=== PATIENT | male | born 1965 | race Caucasian/White ===

== ENCOUNTER → 2020-04-19 | Outpatient (CLI) | payer BC | END | disposition home or self-care (01) | LOC: LABPAT 12:34 | PROVIDERS: ATTEND Surgery | DX: Z20.828 Contact with and (suspected) exposure to other viral communicable diseases (principal) | CPT/HCPCS: U0003; C9803 ==

== ENCOUNTER → 2020-04-23 | Day surgery (SDC) | payer BC ==
[2020-04-22 08:43] VITALS: BMI 25.3
[~2020-04-23] MED LIST: BUPIVACAINE (PF) 0.25% 30 ML VIAL SQ ONE; DEXAMETHASONE SOD PHOSPHATE 4 MG/ML 1 ML VIAL IVP ONE; DEXAMETHASONE SOD PHOSPHATE 4 MG/ML 1 ML VIAL ONE; GLYCOPYRROLATE 0.2 MG/ML 2 ML VIAL ONE; HEPARIN SODIUM,PORCINE 5,000 UNIT/ML 1 ML VIAL SQ ONE; LACTATED RINGERS 1,000 ML IV ONE; LIDOCAINE 1% INJ 10MG/ML (20 ML MDV) ONE; LIDOCAINE 1%-EPI 1:100,000 20 ML VIAL SQ ONE; MIDAZOLAM 2 MG/2 ML VIAL IVP ONE; MIDAZOLAM 2 MG/2 ML VIAL ONE; NEOSTIGMINE 1 MG/ML 10 ML VIAL ONE; ONDANSETRON 4 MG/2 ML VIAL IVP ONE; ONDANSETRON 4 MG/2 ML VIAL ONE; PHENYLEPHRINE-0.9% NACL SYG 1 MG/10 ML SYRINGE ONE; PROPOFOL 10 MG/ML 20 ML VIAL IV ONE; ROCURONIUM 10 MG/ML (10 ML VIAL) IV ONE; ROPIVACAINE 5 MG/ML 30 ML VIAL ONE; SUCCINYLCHOLINE CHLORIDE 100 MG/5 ML SYR IV ONE; fentaNYL (PF) 50 MCG/ML 2 ML AMP ONE
[2020-04-23 10:34] LABS: Basophils # (A) 0.1 k/uL (0-0.2); Basophils % (A) 1 %; Eosinophils # (A) 0.2 k/uL (0-0.7); Eosinophils % (A) 4 %; HCT 50.6 % (39.0-53.0); HGB 17.2 gm/dL (13.0-17.5); Lymphocytes # (A) 2.2 k/uL (1.0-4.8); Lymphocytes % (A) 39 %; MCH 32.8 pg (25.0-35.0); MCV 96.6 fL (80.0-100.0); Mean Platelet Volume 7.7; Monocytes # (A) 0.4 k/uL (0-1.0); Monocytes % (A) 7 %; Neutrophils # (A) 2.6 k/uL (1.3-7.7); Neutrophils % (A) 46 %; Platelet Count 209 k/uL (150-450); RBC 5.24 m/uL (4.30-5.90); RDW 11.9 % (11.5-15.5); WBC 5.7 k/uL (3.8-10.6)
--- NOTE | 2020-04-23 12:37 | P.OP ---
Date of Procedure: 04/23/20 Preoperative Diagnosis: Right inguinal hernia Postoperative Diagnosis: Right inguinal hernia Procedure(s) Performed: Robotic right inguinal hernia repair with mesh placement Implants: Mesh Anesthesia: MARIANN Surgeon: Jesus Mckinney Pathology: none sent Condition: stable Disposition: same day Indications for Procedure: 54-year-old male presents for elective hernia repair of the right inguinal region. He states that he has had discomfort in the right groin and has had a previous left inguinal hernia repair. On exam, the patient does have a palpable reducible right inguinal hernia. Risks, benefits and alternatives were provided to the patient and the patient did provide consent prior to attending the operating suite. Operative Findings: Right inguinal indirect hernia Description of Procedure: The patient was brought to the operating suite and placed in supine position. After general endotracheal anesthesia was induced, arms were tucked to the sides bilaterally and all pressure points were padded. SCDs were also placed in the bilateral lower extremities and were working throughout the entire case. Preoperative antibiotics were given prior to the incision. A timeout was performed with Felty members in agreement with correct patient, procedure and location. A super umbilical incision was made approximately 20 cm superior to the pubic synthesis. The abdomen was then entered under direct visualization wi th a Visiport. At this point pneumoperitoneum was achieved. 2 additional incisions were made approximately 11 7 m lateral to the super umbilical incision and 8 mm trochars were placed. The patient was then placed in Trendelenburg position and the hernia site was clearly visualized on the right side. This was noted as an indirect inguinal hernia. The robot was then docked appropriately. Incision was then made just lateral to the medial umbilical ligament on the right side with the monopolar scissors and the peritoneal flap was created and was taken down towards Remington's ligament. The flap was then extended laterally. Attention was then turned to the indirect inguinal hernia. The sac was then freed from the cord, all while preserving the cord structures. At this point, the indirect hernia was reduced. Once entire space was appropriately dissected out, we brought the laparoscopic anatomic parietex progrip mesh and unrolled it over the hernia site. Once appropriately in place, the peritoneal flap was closed using a running 20V lock suture. Once this was completed, we removed all the robotic instruments and undocked the robot. The super umbilical fascial incision was closed with 0 Vicryl suture using the Wade Lizama device. This was done under visual guidance. All skin incisions were then closed with 4-0 Vicryl suture. The patient was awakened and taken to the recovery unit in stable condition.
[2020-04-23 12:49] VITALS: TEMP 98.2
[2020-04-23 12:57] VITALS: RESP 16
[2020-04-23 14:14] VITALS: BP 123/80; PULSE 58
--- NOTE | 2020-04-23 19:51 | P.ANPRN ---
Procedure Note - Anesthesia - Nerve Block Performed Right Transversus Abdominis Single Time Out Performed: Yes Date of Procedure: 04/23/20 Procedure Start Time: 10:38 Procedure Stop Time: 10:44 Location of Patient: PreOp Indication: Acute Post-Operative Pain, Requested by Surgeon Sedation Type: Sedate with meaningful contact maintained Preparation: Sterile Prep Position: Supine Needle Types: Pajunk Needle Gauge: 21 Ultrasound used to visualize needle placement: Yes Ultrasound used to observe medication spread: Yes Blood Aspirated: No Pain Paresthesia on Injection Noted: No Resistance on Injection: Normal Image Stored and Saved: Yes Events: Uneventful and Well Tolerated (ropi .5% 20cc plus dexamethasone 4mg)
== END | disposition home or self-care (01) ==
LOC: OR 09:44
PROVIDERS: ATTEND Surgery
DX: K40.90 Unilateral inguinal hernia, without obstruction or gangrene, not specified as recurrent (principal); K21.9 Gastro-esophageal reflux disease without esophagitis; K64.9 Unspecified hemorrhoids; I10 Essential (primary) hypertension; J30.2 Other seasonal allergic rhinitis; N52.9 Male erectile dysfunction, unspecified; E55.9 Vitamin D deficiency, unspecified; Z98.890 Other specified postprocedural states; Z87.19 Personal history of other diseases of the digestive system; Z87.09 Personal history of other diseases of the respiratory system; Z86.010 Personal history of colon polyps; Z98.52 Vasectomy status; Z87.891 Personal history of nicotine dependence; Z79.82 Long term (current) use of aspirin; Z82.49 Family history of ischemic heart disease and other diseases of the circulatory system
CPT/HCPCS: 49650; S2900; 64486; 64488; 85025

== ENCOUNTER → 2021-10-13 | Outpatient (CLI) | payer BC ==
--- NOTE | 2021-10-13 14:00 | MR ---
EXAMINATION TYPE: MR knee LT wo con DATE OF EXAM: 10/13/2021 COMPARISON: None. HISTORY: Left knee pain and locking for 1 year TECHNIQUE: Multiplanar, multisequence imaging of the left knee is performed without IV contrast. FINDINGS: MEDIAL MENISCUS: Small focus of round increased signal posterior horn axial image 28 does not definit ively extend to articular surface. LATERAL MENISCUS: Anterior and posterior horns are intact without tear. CRUCIATE LIGAMENTS: The anterior and posterior cruciate ligaments are intact. Some vertical tearing o f the distal ACL is present for reference sagittal image 18. COLLATERAL LIGAMENTS: The medial collateral ligament and lateral collateral ligament complex are inta ct and unremarkable. EXTENSOR MECHANISM: Visualized quadriceps and patellar tendons are intact. EFFUSION: No significant suprapatellar joint effusion. POPLITEAL CYST: No popliteal/echeverria cyst. TRICOMPARTMENT SPACES: Focal moderate narrowing medial aspect of the patellofemoral compartment. No s ignificant spurring is seen. CARTILAGE: Focal chondromalacia patella with fissuring and cartilaginous loss medial aspect of the po sterior patellar pole axial image 30 extending superiorly. BONE MARROW SIGNAL: Some focus of increased T2 signal posterior patellar pole axial image 33 is noted near site of full-thickness cartilaginous loss. OTHER: No additional significant abnormality is appreciated. IMPRESSION: 1. Partial tearing of the distal ACL fibers. No full thickness retracted tear is seen. 2. Possible intrasubstance tear posterior horn of medial meniscus. No full-thickness meniscal tear. 3. Patellofemoral joint arthropathy as detailed above.
== END | disposition home or self-care (01) ==
LOC: RADMRIMAIN 13:03
PROVIDERS: ATTEND Orthopaedic Surgery
DX: S83.512A Sprain of anterior cruciate ligament of left knee, initial encounter (principal); M12.862 Other specific arthropathies, not elsewhere classified, left knee; X58.XXXA Exposure to other specified factors, initial encounter

== ENCOUNTER → 2022-02-18 | Outpatient (CLI) | payer BC ==
[2022-02-18 11:43] LABS: Basophils # (A) 0.03 X 10*3/uL (0.00-0.10); Basophils % (A) 0.5 %; Eosinophils # (A) 0.14 X 10*3/uL (0.04-0.35); Eosinophils % (A) 2.3 %; HCT 45.5 % (39.6-50.0); HGB 16.1 g/dL (13.0-17.0); Immature Grans, Automated 0.2 %; Lymphocytes # (A) 2.67 X 10*3/uL (0.90-5.00); Lymphocytes % (A) 44.1 %; MCH 33.1 pg (27.0-32.0); MCHC 35.4 g/dL (32.0-37.0); MCV 93.4 fL (80.0-97.0); Monocytes # (A) 0.51 X 10*3/uL (0.20-1.00); Monocytes % (A) 8.4 %; NRBC Per 100 WBC 0 /100 WBCS (0.0-0.0); Neutrophils # (A) 2.69 X 10*3/uL (1.80-7.70); Neutrophils % (A) 44.5 %; Platelet Count 213 X 10*3/uL (140-440); RBC 4.87 X 10*6/uL (4.40-5.60); RDW 12.1 % (11.5-14.5); WBC 6.05 X 10*3/uL (4.50-10.00)
[2022-02-18 11:50] LABS: Anion Gap 8.6 mmol/L (10.00-18.00); Carbon Dioxide 24.4 mmol/L (20.0-27.5); Potassium 4.3 mmol/L (3.5-5.5)
== END | disposition home or self-care (01) ==
LOC: LABPAT 08:15
PROVIDERS: ATTEND Orthopaedic Surgery
DX: Z01.812 Encounter for preprocedural laboratory examination (principal); M23.92 Unspecified internal derangement of left knee
CPT/HCPCS: 80051; 85025; 93005

== ENCOUNTER 2022-02-23 10:44 | Day surgery (SDC) | payer BC ==
[2022-02-21 11:22] VITALS: BMI 27.9
--- NOTE | 2022-02-23 04:28 | HP ---
HISTORY AND PHYSICAL DATE OF SURGERY: 02/23/2022. HISTORY OF PRESENT ILLNESS: Graeme Vásquez is a 56-year-old gentleman, seen with progressive left knee pain. We discussed options for treatment. He elected to proceed with arthroscopy. Consent was obtained. PAST MEDICAL HISTORY: Noncontributory. PAST SURGICAL HISTORY: Herniorrhaphy. DAILY MEDICATIONS: Tylenol. ALLERGIES: None. SOCIAL HISTORY: Denies tobacco use. PHYSICAL EVALUATION OF THE LEFT KNEE: Range of motion 0 to 130. Mild effusion. Tenderness in the medial joint line. Positive medial Raul's. Ligaments stable. Distal neurovascular exam is intact. RADIOGRAPHS: Radiographs of the left knee reveal mild osteoarthritis. MRI of the left knee revealed partial ACL tear, abnormal signal in the medial meniscus, and patellofemoral osteoarthritis. IMPRESSION: Internal derangement of left knee with partial anterior cruciate ligament tear and medial meniscal tear. PLAN: Left knee arthroscopy with partial medial meniscectomy and debridement. MMODL / IJN: [id number] /
[~2022-02-23 10:44] MED LIST changes: -BUPIVACAINE (PF) 0.25% 30 ML VIAL SQ ONE; +DEXAMETHASONE SOD PHOSPHATE 4 MG/ML 1 ML VIAL IV ONE; -DEXAMETHASONE SOD PHOSPHATE 4 MG/ML 1 ML VIAL IVP ONE; -DEXAMETHASONE SOD PHOSPHATE 4 MG/ML 1 ML VIAL ONE; -GLYCOPYRROLATE 0.2 MG/ML 2 ML VIAL ONE; -HEPARIN SODIUM,PORCINE 5,000 UNIT/ML 1 ML VIAL SQ ONE; +HYDROmorphone 0.5 MG/0.5 ML SYRINGE IVP PRN; -LACTATED RINGERS 1,000 ML IV ONE; +LACTATED RINGERS 1,000 ML IV SCH; +LIDOCAINE 1% (10MG/ML) FOR IV START INTRADERMA PRN; -LIDOCAINE 1% INJ 10MG/ML (20 ML MDV) ONE; -LIDOCAINE 1%-EPI 1:100,000 20 ML VIAL SQ ONE; +MIDAZOLAM 2 MG/2 ML VIAL IV PRN; -MIDAZOLAM 2 MG/2 ML VIAL IVP ONE; -MIDAZOLAM 2 MG/2 ML VIAL ONE; -NEOSTIGMINE 1 MG/ML 10 ML VIAL ONE; -ONDANSETRON 4 MG/2 ML VIAL ONE; -PHENYLEPHRINE-0.9% NACL SYG 1 MG/10 ML SYRINGE ONE; -PROPOFOL 10 MG/ML 20 ML VIAL IV ONE; -ROCURONIUM 10 MG/ML (10 ML VIAL) IV ONE; -ROPIVACAINE 5 MG/ML 30 ML VIAL ONE; -SUCCINYLCHOLINE CHLORIDE 100 MG/5 ML SYR IV ONE; -fentaNYL (PF) 50 MCG/ML 2 ML AMP ONE
[2022-02-23 11:06] VITALS: TEMP 97.4
[2022-02-23] MEDS ORDERED: LACTATED RINGERS 1,000 ML IV ONE (11:20)
[2022-02-23] MEDS ORDERED: MIDAZOLAM 2 MG/2 ML VIAL IVP ONE (11:56)
[2022-02-23] MEDS ORDERED: PROPOFOL 10 MG/ML 20 ML VIAL IV ONE (12:27)
[2022-02-23] MEDS ORDERED: MIDAZOLAM 2 MG/2 ML VIAL ONE (12:27)
[2022-02-23] MEDS ORDERED: fentaNYL (PF) 50 MCG/ML 2 ML AMP ONE (12:27)
[2022-02-23] MEDS ORDERED: DEXAMETHASONE SOD PHOSPHATE 4 MG/ML 1 ML VIAL ONE (12:27)
[2022-02-23] MEDS ORDERED: LIDOCAINE 2% INJ 20 MG/ML (2 ML VIAL) ONE (12:27)
[2022-02-23] MEDS ORDERED: ROPIVACAINE 5 MG/ML 30 ML VIAL ONE (12:27)
[2022-02-23] MEDS ORDERED: BUPIVACAINE (PF) 0.25% 30 ML VIAL SQ ONE ×2 (12:33→12:58)
[2022-02-23 13:55] VITALS: RESP 20
[2022-02-23 14:13] VITALS: BP 148/87; PULSE 58
--- NOTE | 2022-02-23 19:36 | P.ANPRN ---
Procedure Note - Anesthesia - Nerve Block Performed Left Adductor Canal Single Time Out Performed: Yes Date of Procedure: 02/23/22 Procedure Start Time: 11:55 Procedure Stop Time: 11:59 Location of Patient: PreOp Indication: Acute Post-Operative Pain, Requested by Surgeon Sedation Type: Sedate with meaningful contact maintained Preparation: Sterile Prep Position: Supine Needle Types: Pajunk Needle Gauge: 21 Ultrasound used to visualize needle placement: Yes Ultrasound used to observe medication spread: Yes Blood Aspirated: No Pain Paresthesia on Injection Noted: No Resistance on Injection: Normal Image Stored and Saved: Yes Events: Uneventful and Well Tolerated (ropi .5% 20cc plus dexamethasone 4mg)
--- NOTE | 2022-02-23 23:42 | OP ---
OPERATIVE REPORT PREOPERATIVE DIAGNOSIS: Internal derangement, left knee. POSTOPERATIVE DIAGNOSES: 1. Medial meniscal tear, left knee. 2. 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 3. Reactive synovitis of medial, lateral, and suprapatellar compartments, left knee. PROCEDURES PERFORMED: 1. Arthroscopic partial medial meniscectomy, left knee. 2. Arthroscopic chondroplasty of patella, left knee. 3. Arthroscopic partial synovectomy of medial, lateral, and suprapatellar compartments, left knee. ANESTHESIA: General. BLOOD LOSS: 7 mL. CONDITION: Stable. INDICATIONS FOR PROCEDURE: This is a 56-year-old gentleman seen with progressive left knee pain. We discussed options. He elected to proceed with arthroscopy. Consent was obtained. DESCRIPTION OF PROCEDURE: The patient was taken to the operative suite. He underwent a general anesthetic by the Department of Anesthesia. He received preoperative IV antibiotics. The left lower extremity was placed in a well-padded arthroscopic leg frazier and prepped and draped in normal sterile orthopedic fashion. Lateral parapatellar incision was made. Trocar was inserted. An arthroscopy was initiated in the suprapatellar compartment. There were grade 3/4 chondromalacia changes of the medial facet of the patella with some large osteochondral flap tears present. There was some thick reactive synovitis in the suprapatellar compartment. No loose bodies were identified. The scope was guided into the gutter. No loose bodies. The scope was guided into the medial compartment. A spinal needle was introduced in the anteromedial portal site. Incision was made. Trocar was inserted followed by a probe. There was a radial tear of posterior horn of the medial meniscus. No chondromalacia present. Thick reactive synovitis seen anteriorly. I performed a partial medial meniscectomy getting down to stable meniscal tissue, and I performed a partial synovectomy decompressing the reactive synovitis. The residual meniscus was stable, and there was good decompression of the synovitis. The scope and probe were now guided into the intercondylar notch. I identified and probed the ACL, which appeared intact and stable. The scope and probe were guided into the lateral compartment. The lateral meniscus was thoroughly probed and found to be stable. There was no significant chondromalacia. There was some reactive synovitis anteriorly. I introduced a motorized shaver and performed a partial synovectomy. There was good decompression of the synovitis. The scope was then guided back into the suprapatellar compartment. I introduced a motorized shaver. I debrided some piecemeal fragments of meniscus I encountered. I now performed a chondroplasty of the patella getting down to stable osteochondral tissue, and I performed a partial synovectomy. The shaver was removed. The residual osteochondral surface appeared stable. I did note areas of almost grade 4 chondromalacia of the medial facet, but the residual articular surface appeared stable. There was good decompression of the synovitis. I took one more look around the entire knee. No residual debris. Instruments were now removed from the knee. The portal sites were approximated with Steri-Strips. The joint was infiltrated with 20 mL of 0.25% plain Marcaine. Sterile dressings were applied followed by a CADEN hose. The patient was now awakened and then transferred to Recovery in stable condition. MMODL / IJN: [id number] /
== END 2022-02-23 14:33 | disposition home or self-care (01) ==
LOC: OR 10:44
PROVIDERS: ATTEND Orthopaedic Surgery
DX: M23.304 Other meniscus derangements, unspecified medial meniscus, left knee (principal); S83.512A Sprain of anterior cruciate ligament of left knee, initial encounter; M22.42 Chondromalacia patellae, left knee; M65.862 Other synovitis and tenosynovitis, left lower leg; M17.12 Unilateral primary osteoarthritis, left knee; G89.18 Other acute postprocedural pain; M25.562 Pain in left knee; K21.9 Gastro-esophageal reflux disease without esophagitis; M25.40 Effusion, unspecified joint; Z98.890 Other specified postprocedural states; X58.XXXA Exposure to other specified factors, initial encounter
CPT/HCPCS: 29881; 64447; 76942; J2250; J1100; J0690; J2405; J3010; J2795; J2704; J2001

== ENCOUNTER → 2022-05-02 | Outpatient (CLI) | payer BC ==
--- NOTE | 2022-05-02 12:15 | MR ---
EXAMINATION TYPE: MR knee RT wo con DATE OF EXAM: 05/02/2022 COMPARISON: Lateral knee radiograph 10/04/2021 HISTORY: Right knee pain. TECHNIQUE: Multiplanar, multisequence imaging of the right knee is performed without IV contrast. FINDINGS: MENISCI: Lateral meniscus has a normal appearance. There is intrasubstance signal within the posterio r horn of the medial meniscus without discrete extension to the articular surface. LIGAMENTS AND TENDONS: The posterior cruciate ligament, medial collateral ligament, fibular collater al ligament, and patellar retinacula are within normal limits. Some vertical tearing of the distal AC L is present. The patellar tendon, quadriceps tendon, IT band, pes anserinus tendons, semimembranosu s tendon, popliteus tendon, and biceps femoris tendon are all within normal limits. OSSEOUS STRUCTURES AND CARTILAGE: The cartilage of the patellofemoral joint demonstrates areas of he terogeneous signal with fissuring and subchondral cystic formation involving the medial and lateral f acets. The cartilage of the medial knee joint and lateral knee joint compartments are intact. The b one marrow signal intensity is within normal limits. No joint effusion. No popliteal/Galaviz's cyst. IMPRESSION: 1. Partial tearing of the distal ACL fibers. No full thickness retracted tear is seen. 2. Possible intrasubstance tear of the posterior horn of the medial meniscus. No full-thickness meni scal tear. 3. Patellofemoral joint chondromalacia.
== END | disposition home or self-care (01) ==
LOC: RADMRIMAIN 10:59
PROVIDERS: ATTEND Orthopaedic Surgery
DX: M94.261 Chondromalacia, right knee (principal)

== ENCOUNTER → 2022-07-04 | Outpatient (CLI) | payer BC ==
[2022-07-04 18:30] LABS: Basophils # (A) 0.03 X 10*3/uL (0.00-0.10); Basophils % (A) 0.6 %; Eosinophils # (A) 0.17 X 10*3/uL (0.04-0.35); Eosinophils % (A) 3.4 %; HCT 47.8 % (39.6-50.0); HGB 15.8 g/dL (13.0-17.0); Immature Grans, Automated 0 %; Lymphocytes # (A) 2.29 X 10*3/uL (0.90-5.00); Lymphocytes % (A) 46.1 %; MCH 32.6 pg (27.0-32.0); MCHC 33.1 g/dL (32.0-37.0); MCV 98.6 fL (80.0-97.0); Mean Platelet Volume 11.2 fL (9.5-12.2); Monocytes # (A) 0.47 X 10*3/uL (0.20-1.00); Monocytes % (A) 9.5 %; NRBC Per 100 WBC 0 /100 WBCS (0.0-0.0); Neutrophils # (A) 2.01 X 10*3/uL (1.80-7.70); Neutrophils % (A) 40.4 %; Platelet Count 202 X 10*3/uL (140-440); RBC 4.85 X 10*6/uL (4.40-5.60); RDW 12.4 % (11.5-14.5); WBC 4.97 X 10*3/uL (4.50-10.00)
[2022-07-06 07:30] LABS: Anion Gap 12.8 mmol/L (10.00-18.00); Carbon Dioxide 23.2 mmol/L (20.0-27.5); Potassium 4.8 mmol/L (3.5-5.5)
== END | disposition home or self-care (01) ==
LOC: LABPAT 08:11
PROVIDERS: ATTEND Orthopaedic Surgery
DX: Z01.812 Encounter for preprocedural laboratory examination (principal); M23.91 Unspecified internal derangement of right knee
CPT/HCPCS: 80051; 85025

== ENCOUNTER 2022-07-13 11:02 | Day surgery (SDC) | payer BC ==
[2022-07-10 11:25] VITALS: BMI 27.9
--- NOTE | 2022-07-13 08:18 | HP ---
HISTORY AND PHYSICAL DATE OF SURGERY: 07/13/2022. HISTORY OF PRESENT ILLNESS: Graeme Vásquez is a 57-year-old gentleman, seen with progressive right knee pain. We discussed options for treatment. He elected to proceed with right knee arthroscopy. Consent regarding the procedure was obtained. PAST MEDICAL HISTORY: Noncontributory. PAST SURGICAL HISTORY: Herniorrhaphy. DAILY MEDICATIONS: Tylenol. ALLERGIES: None. SOCIAL HISTORY: He denies tobacco use. PHYSICAL EVALUATION OF THE RIGHT KNEE: His range of motion is 0 to 130 degrees with mild effusion. Tenderness along the medial joint line with positive medial Raul's. Ligaments are stable. Hip rotation is without pain. Distal neurovascular exam is intact. IMAGING STUDIES: Right knee radiographs revealed mild osteoarthritic changes. MRI right knee revealed an intrasubstance tear of the medial meniscus as well as a partial ACL tear. IMPRESSION: Internal derangement of right knee with medial meniscal tear and partial anterior cruciate ligament tear. PLAN: Right knee arthroscopy with partial medial meniscectomy and debridement. Surgery is scheduled for 07/13/2022. MMODL / IJN: [id number] /
[~2022-07-13 11:02] MED LIST changes: -LIDOCAINE 1% (10MG/ML) FOR IV START INTRADERMA PRN; +SCOPOLAMINE 1 MG/72 HR PATCH TRANSDERM ONE
[2022-07-13] MEDS ORDERED: MIDAZOLAM 2 MG/2 ML VIAL IVP ONE (12:59)
[2022-07-13] MEDS ORDERED: LIDOCAINE 2% INJ 20 MG/ML (2 ML VIAL) ONE (13:49)
[2022-07-13] MEDS ORDERED: ROPIVACAINE 5 MG/ML 30 ML VIAL ONE (13:49)
[2022-07-13] MEDS ORDERED: MIDAZOLAM 2 MG/2 ML VIAL ONE (13:49)
[2022-07-13] MEDS ORDERED: DEXAMETHASONE SOD PHOSPHATE 4 MG/ML 1 ML VIAL ONE (13:49)
[2022-07-13] MEDS ORDERED: fentaNYL (PF) 50 MCG/ML 2 ML AMP ONE (13:49)
[2022-07-13] MEDS ORDERED: PROPOFOL 10 MG/ML 20 ML VIAL IV ONE (13:49)
[2022-07-13] MEDS ORDERED: BUPIVACAIN-EPI 0.25%-1:200,000 30 ML VIAL INTRAARTIC ONE (14:14)
[2022-07-13] MEDS ORDERED: LACTATED RINGERS 1,000 ML IV ONE (14:25)
--- NOTE | 2022-07-13 14:27 | P.ANPRN ---
Procedure Note - Anesthesia - Nerve Block Performed Right Adductor Canal Single Time Out Performed: Yes Date of Procedure: 07/13/22 Procedure Start Time: 12:58 Procedure Stop Time: 13:07 Location of Patient: PreOp Indication: Acute Post-Operative Pain, Requested by Surgeon Sedation Type: Sedate with meaningful contact maintained Preparation: Sterile Prep, Sterile Dressing Position: Supine Catheter: None Needle Types: Facet Needle Gauge: 20 Ultrasound used to visualize needle placement: Yes Ultrasound used to observe medication spread: Yes Injectate: 0.5% Ropivacaine (see comment for volume) (15 ml + decadron 2 mg) Blood Aspirated: No Pain Paresthesia on Injection Noted: No Resistance on Injection: Normal Image Stored and Saved: Yes Events: Uneventful and Well Tolerated Right iPack Single Time Out Performed: Yes Date of Procedure: 07/13/22 Procedure Start Time: 13:08 Procedure Stop Time: 13:15 Location of Patient: PreOp Indication: Acute Post-Operative Pain, Requested by Surgeon Sedation Type: Sedate with meaningful contact maintained Preparation: Sterile Prep, Sterile Dressing Position: Left Lateral Catheter: None Needle Types: Facet Needle Gauge: 20 Ultrasound used to visualize needle placement: Yes Ultrasound used to observe medication spread: Yes Injectate: 0.5% Ropivacaine (see comment for volume) (15 ml + 2 mg decadron) Blood Aspirated: No Pain Paresthesia on Injection Noted: No Resistance on Injection: Normal Image Stored and Saved: Yes Events: Uneventful and Well Tolerated
--- NOTE | 2022-07-13 14:37 | P.OP ---
Date of Procedure: 07/13/22 Preoperative Diagnosis: Internal derangement right knee Postoperative Diagnosis: 1. Tear medial and lateral meniscus right knee 2. Grade 3 chondromalacia patella right knee 3. Grade 2 chondromalacia medial femoral condyle right knee 4. Reactive synovitis medial, lateral and suprapatellar compartments right knee Procedure(s) Performed: 1. Arthroscopic partial medial and lateral meniscectomy right knee 2. Arthroscopic chondroplasty patella right knee 3. Arthroscopic chondroplasty medial femoral condyle right knee 4. Arthroscopic partial synovectomy medial, lateral and suprapatellar compartments right knee Anesthesia: MARLOA, local Surgeon: Charlie Lovett Estimated Blood Loss (ml): 5 Pathology: none sent Condition: stable Disposition: PACU Indications for Procedure: 57-year-old gentleman seen with progressive right knee pain. After treatment options were discussed, he elected to proceed with arthroscopy. Operative Findings: See description of procedure Description of Procedure: Patient was taken to the operative suite. Patient underwent a general anesthetic by the department of anesthesia. Patient was given preoperative antibiotics. The right lower extremity was placed in a well-padded arthroscopic leg frazier. The right leg was prepped and draped in the normal sterile orthopedic fashion. A lateral parapatellar and suprapatellar incision was made. Trochars were inserted. Arthroscopy was initiated. Suprapatellar pouch revealed diffuse thick reactive synovitis. The patellofemoral joint appeared to articulate congruently. There was grade 3 chondromalacia of the patella with diffuse osteochondral tears present. The scope was guided into the medial gutter. No loose bodies or plica were identified. The scope was then guided into the medial compartment. A medial parapatellar incision was made. Trocar inserted followed by probe. There was a radial tear posterior horn medial meniscus. There were grade 2 chondral malacia changes the medial femoral condyle with some osteochondral flap tears present. There was some thick reactive synovitis anteriorly. I performed a partial medial meniscectomy getting down to stable meniscal tissue. I performed a chondroplasty of the medial femoral condyle getting down to stable osteochondral tissue. I performed a partial synovectomy decompressing the thick reactive synovitis. The residual meniscus was stable. There was good decompression of the synovitis. The residual osteochondral surface was stable, we again noted grade 2 chondromalacia there. Scope and probe were then guided into the intercondylar notch. Cruciates were identified, probed and found to be stable. The scope and probe were then guided into lateral compartment. Was a radial tear mid body lateral meniscus. There was no synovitis and chondromalacia present. There was some thick reactive synovitis anteriorly. I performed a partial lateral meniscectomy. I performed a partial synovectomy. The residual meniscus was stable. There was good decompression of the synovitis. The scope was in guided back into the suprapatellar compartment. I introduced a motorized shaver into the suprapatellar compartment. I performed a chondroplasty of the patella. I performed a partial synovectomy. Shaver was removed. The residual osteochondral surface of the patella. Stable again noted grade 3 chondromalacia there. There was good decompression of the synovitis. I took one more look around the entire knee, no residual debris. Instruments were now removed from the joint. The joint was infiltrated with .25% Marcaine. Steri-Strips were applied to the portal sites. Sterile dressings were applied. The patient was placed into a CADEN hose. No tourniquet was utilized. The patient was awakened, transferred to a bed and taken to recovery stable satisfactory condition.
[2022-07-13 14:49] VITALS: TEMP 97
[2022-07-13 15:34] VITALS: PULSE 58; RESP 20
[2022-07-13 16:16] VITALS: BP 122/82
== END 2022-07-13 16:17 | disposition home or self-care (01) ==
LOC: OR 11:02
PROVIDERS: ATTEND Orthopaedic Surgery
DX: S83.281A Other tear of lateral meniscus, current injury, right knee, initial encounter (principal); M22.41 Chondromalacia patellae, right knee; M65.861 Other synovitis and tenosynovitis, right lower leg; G89.18 Other acute postprocedural pain; X58.XXXA Exposure to other specified factors, initial encounter
CPT/HCPCS: 64447; 64999; 76942; 29880; J2250; J1100; J0690; J2405; J3010; J2795; J2704; J2001